=== PATIENT | female | born 1975 | race Caucasian/White ===

== ENCOUNTER 2020-10-20 17:17 | Outpatient (CLI) | payer BC | END 2020-10-20 17:18 | disposition home or self-care (01) | LOC: COV 17:17 | PROVIDERS: ATTEND Family Medicine | DX: Z20.828 Contact with and (suspected) exposure to other viral communicable diseases (principal) ==

== ENCOUNTER 2021-02-07 16:40 | Emergency (ER) | payer BC ==
[2021-02-07] MEDS ORDERED: ONDANSETRON 4 MG/2 ML VIAL IVP STA ×2 (17:09→18:56)
[2021-02-07] MEDS ORDERED: HYDROmorphone 1 MG/ML CARPUJECT IVP STA ×2 (17:09→19:04)
--- NOTE | 2021-02-07 17:13 | ED Physician Documentation ---
History of Present Illness - Stated complaint Stated Complaint: ABD PX - Chief complaint Chief Complaint: Abd Pain - Additonal information Additional information: 45-year-old female presents the emergency department for worsening right upper quadrant abdominal pain. She reports that she has had it intermittently for the last 2 months with some associated nausea and vomiting. She did discuss this with her primary care doctor who advised that she obtain an ultrasound of the abdomen. The ultrasound was completed this morning at [facility] and since then she has had worsening pain. Positive nausea no vomiting. She does report a history of kidney stones but feels that this is different. Review of Systems Constitutional: denies: Chills Eyes: reports: Reviewed and negative Ears: reports: Reviewed and negative Nose: reports: Reviewed and negative Throat: reports: Reviewed and negative Cardiac: denies: Chest pain / pressure, Palpitations, Pedal edema Respiratory: denies: Dyspnea, Cough GI: reports: Abdominal Pain, Nausea. denies: Vomiting, Constipation, Diarrhea : reports: Reviewed and negative Skin: reports: Reviewed and negative Musculoskeletal: reports: Reviewed and negative Neurologic: reports: Reviewed and negative PD PAST MEDICAL HISTORY - Present Medications Home Medications: Ambulatory Orders Medication Instructions Recorded Confirmed Ibuprofen [Motrin] 600 mg PO Q6H PRN #30 tab 02/07/21 Ondansetron Odt [Zofran] 4 mg TL Q6H PRN #10 tablet 02/07/21 Oxycodone HCl/Acetaminophen 1 - 2 each PO Q6H PRN #14 tablet 02/07/21 [Percocet 5-325 mg Tablet] - Allergies Allergies/Adverse Reactions: Allergies Allergy/AdvReac Type Severity Reaction Status Date / Time epinephrine Allergy Hives Verified 02/07/21 16:46 metoclopramide [From Reglan] Allergy Unknown Verified 02/07/21 16:46 shellfish derived Allergy Anaphylaxis Verified 02/07/21 16:46 PD ED PE EXPANDED - General General: Alert, No acute distress, In Pain, In distress - Cardiac Cardiac: Regular Rate, Radial strong equal, Pedal strong equal, Cap refill < 2 sec - Respiratory Respiratory: Clear to ausultation nancie. No: Distress, Labored - Abdomen Abdomen: Normal Bowel sounds, Tender to palpation, Rebound, Guarding, RUQ - Derm Derm: Normal color, Warm and dry. No: Rash - Extremities Extremities: Normal. No: Deformity, Tenderness - Neuro Neuro: Alert and Oriented X 3, CNII-XII intact - GCS Eye Opening: Spontaneous Motor: Obeys Commands Verbal: Oriented Total: 15 Results - Vitals Vitals: Vital Signs - 24 hr 02/07/21 02/07/21 16:46 18:50 Temperature 36.4 C L Heart Rate 71 60 Respiratory 20 18 Rate Blood Pressure 153/116 H 139/99 H O2 Saturation 97 100 Oxygen O2 Source Room air - Labs Labs: Laboratory Tests 02/07/21 02/07/21 02/07/21 17:15 17:34 17:34 WBC 7.6 RBC 5.14 Hgb 15.3 Hct 45.3 MCV 88.1 MCH 29.8 MCHC 33.8 RDW 12.9 Plt Count 222 MPV 10.7 Neut # (Auto) 4.2 Lymph # (Auto) 2.6 Hardy # (Auto) 0.5 Eos # (Auto) 0.2 Baso # (Auto) 0.1 Absolute Nucleated RBC 0.00 Nucleated RBC % 0.0 Sodium 139 Potassium 3.6 Chloride 104 Carbon Dioxide 25 Anion Gap 10.0 BUN 16 Creatinine 1.0 Estimated GFR (MDRD) 60 L Glucose 92 Calcium 9.7 Total Bilirubin 0.6 AST 40 ALT 48 Alkaline Phosphatase 74 Total Protein 8.2 Albumin 4.7 Globulin 3.5 Albumin/Globulin Ratio 1.3 Lipase 23 Urine Color YELLOW Urine Clarity CLEAR Urine pH 6.0 Ur Specific [place] <=1.005 Urine Protein NEGATIVE Urine Glucose (UA) NEGATIVE Urine Ketones NEGATIVE Urine Occult Blood NEGATIVE Urine Nitrite NEGATIVE Urine Bilirubin NEGATIVE Urine Urobilinogen 0.2 (NORMAL) Ur Leukocyte Esterase NEGATIVE Ur Microscopic Review NOT INDICATED Urine Culture Comments NOT INDICATED Urine HCG, Qual NEGATIVE - Rads (name of study) CT abd Radiology: Final report received (Mild hepatomegaly and prominent hepatic steatosis. Very mild right greater than left hydronephrosis without visible calcifications or perinephric inflammation. May represent recently passed calculus or vesicoureteral reflux) PD MEDICAL DECISION MAKING - ED course Complexity details: reviewed results, re-evaluated patient, d/w patient ED course: 45-year-old female presents the emergency department for evaluation of upper quadrant abdominal pain with associated nausea and vomiting. This has been an ongoing issue for at least 2 months but acutely worse this morning after she had an ultrasound completed at [facility]. Abdominal ultrasound completed this morning at [facility] results are reviewed:No findings of gallstones or sludge. Gallbladder wall is not thickened. No pericholecystic fluid seen. Negative Horvath's. Kidneys are normal in size and echotexture. Mild right pelviectasis seen. Impression is sonographically normal gallbladder. Biliary tree is not well seen. When patient presented she was in exquisite pain in the right upper quadrant and right flank. Given the ultrasound results at an outlying hospital today that were essentially normal for concerns of biliary colic we did proceed to do a CT of the abdomen without contrast given shellfish allergy. CT of the abdomen does show mild right greater than left hydronephrosis without any obvious stones or h ydroureter. There is no findings of infection in the urine. These findings do suggest that she is likely passing a stone. Screening labs show no significant abnormality. Urine shows no signs of infection. Patient was given Dilaudid and Zofran initially for pain control in the emergency department with moderate relief that was then followed up with Toradol and again dilaudid with marked improvement in symptoms. Patient will be discharged home. Advised to follow-up with Dr. Wiley urology in [place]. She will also be given a limited prescription for Percocet and Zofran for home use. Emergent return precautions were discussed. Departure - Departure Disposition: 01 Home, Self Care Clinical Impression: Right flank pain, Hydronephrosis of right kidney Condition: Stable Record reviewed to determine appropriate education?: Yes Instructions: ED Stone Renal W Colic Follow-Up: Yoav Wiley MD [Provider Admit Priv/Credential] - Adithya Frank MD [Primary Care Provider] - Prescriptions: Ibuprofen [Motrin] 600 mg PO Q6H PRN #30 tab PRN Reason: Pain Oxycodone HCl/Acetaminophen [Percocet 5-325 mg Tablet] 1 - 2 each PO Q6H PRN #14 tablet PRN Reason: pain Ondansetron Odt [Zofran] 4 mg TL Q6H PRN #10 tablet PRN Reason: Nausea / Vomiting Comments: Madonna I am glad that your pain is feeling better. You were seen today in the emergency department for right flank pain. As we discussed the ultrasound completed at [facility] did not show any findings of gallbladder concern. However the CT scan today that we did in the emergency department suggests mild right-sided kidney swelling. Your pain is most consistent with passing a kidney stone. Reassuringly all your labs are essentially normal and there is no infection in the urine. I have prescribed ibuprofen to be used with food 3 times a day for pain. I have also prescribed a limited amount of Zofran to help with nausea. For severe pain you may use the Percocet. Be cautious with this medication it is addictive will cause constipation and make you unsafe to drive. Please discuss this ED visit with your primary care provider. I have also made a referral for you to follow-up with Dr. Wiley in [place] who is a urologist. If at any point you are having worsening pain, any fevers uncontrolled vomiting please return to the ER for a second look.
[2021-02-07 17:26] LABS: BILIRUBIN,URINE NEGATIVE (NEGATIVE); GLUCOSE, URINE (UA) NEGATIVE (NEGATIVE); KETONES,URINE (UA) NEGATIVE (NEGATIVE); LEUKOCYTE ESTERASE, URINE NEGATIVE (NEGATIVE); NITRITE,URINE NEGATIVE (NEGATIVE); OCCULT BLOOD,URINE NEGATIVE (NEGATIVE); PROTEIN,URINE NEGATIVE (NEGATIVE); UROBILINOGEN,URINE 0.2 (NORMAL) E.U./dL (NORMAL)
[2021-02-07 17:28] LABS: CLARITY,URINE CLEAR (CLEAR); HCG UR QUAL NEGATIVE
[2021-02-07 17:39] LABS: BASOPHILS # (AUTO) 0.1 10^3/uL (0.0-0.1); BASOPHILS % (AUTO) 0.9 %; EOSINOPHILS # (AUTO) 0.2 10^3/uL (0.0-0.7); EOSINOPHILS % (AUTO) 2.6 %; HCT - HEMATOCRIT 45.3 % (37.0-47.0); HGB - HEMOGLOBIN 15.3 g/dL (12.0-16.0); LYMPHOCYTES # (AUTO) 2.6 10^3/uL (1.5-3.5); LYMPHOCYTES % (AUTO) 34.4 %; MEAN CORPUSCULAR HEMOGLOBIN 29.8 pg (27.0-31.0); MEAN CORPUSCULAR HGB CONC 33.8 g/dL (32.0-36.0); MEAN CORPUSCULAR VOLUME 88.1 fL (81.0-99.0); MEAN PLATELET VOLUME 10.7 fL (7.9-10.8); MONOCYTES # (AUTO) 0.5 10^3/uL (0.0-1.0); MONOCYTES % (AUTO) 6.7 %; NEUTROPHILS # (AUTO) 4.2 10^3/uL (1.5-6.6); NEUTROPHILS % (AUTO) 55.1 %; PLT - PLATELET COUNT 222 10^3/uL (130-450); RED BLOOD COUNT 5.14 10^6/uL (4.20-5.40); RED CELL DISTRIBUTION WIDTH 12.9 % (12.0-15.0); WHITE BLOOD COUNT 7.6 x10^3/uL (4.8-10.8)
[2021-02-07 17:52] LABS: ALBUMIN 4.7 g/dL (3.2-5.5); ALBUMIN/GLOBULIN RATIO 1.3 (1.0-2.2); BILIRUBIN,TOTAL 0.6 mg/dL (0.2-1.0); CALCIUM 9.7 mg/dL (8.5-10.3); POTASSIUM 3.6 mmol/L (3.5-5.0); TOTAL PROTEIN 8.2 g/dL (6.7-8.2)
--- NOTE | 2021-02-07 18:18 | CT Report ---
PROCEDURE: Abdomen/Pelvis WO INDICATIONS: Right flank/RUQ pain TECHNIQUE: Noncontrast 5 mm thick sections acquired from the diaphragms to the symphysis. 5 mm coronal and sagi ttal reformats were then performed. For radiation dose reduction, the following was used: automated exposure control, adjustment of mA and/or kV according to patient size. COMPARISON: None. FINDINGS: Image quality: Excellent. ABDOMEN: Lung bases: Lung bases are clear. Heart size is normal. Solid organs: Liver is mildly enlarged and moderately diffusely hypodense. There are 2 rounded areas of relative hyperdensity adjacent to the gallbladder fossa, one measuring 1.3 cm, and the other, ill- defined measuring about 1.5 cm. The spleen is at the upper limits of normal in length measuring 13.4 cm. Gallbladder is normal Pancreas is normal in contours. No adrenal nodules. Kidneys are normal in size. Very minor bilateral hydronephrosis, right greater than left. No nephrolithiasis or perineph divina inflammation. No hydroureter. Peritoneum and bowel: Unenhanced bowel loops demonstrate normal wall thickness and caliber. Diminut josias appendix with appendicolith at the origin. No periappendiceal inflammation. Increased quantity of solid stool in the proximal colon. No free fluid or air. Nodes and vessels: No retroperitoneal or mesenteric adenopathy by size criteria. Aorta and inferior vena cava are normal in caliber. Miscellaneous: No ventral hernias. PELVIS: Genitourinary: Bladder wall thickness is normal. The uterus is absent. Miscellaneous: No inguinal hernias or adenopathy. Bones: No suspicious bony lesions. No vertebral body compression fractures. IMPRESSION: 1. Mild hepatomegaly and prominent hepatic steatosis with probable focal fat sparing adjacent to the gallbladder. Confirmation with contrast-enhanced MRI of the liver is recommended. 2. Very mild right greater than left hydronephrosis without visible calcifications or perinephric inf lammation. This may represent recently passed calculus or vesicoureteral reflux. 3. Mild increased quantity of proximal colon stool. 4. Normal appendix. Reviewed by: Sierra Bae MD on 02/07/2021 5:17 PM [email or web address] Approved by: Sierra Bae MD on 02/07/2021 5:17 PM AKDT Station ID: [id number]
[2021-02-07] MEDS ORDERED: KETOROLAC 60 MG/2 ML VIAL IM STA (18:28)
[2021-02-07] MEDS ORDERED: oxyCODONE/ACET 5/325 Prepack 4 PO STA (19:29)
[2021-02-07] MEDS ORDERED: ONDANSETRON ODT 4 MG Prepack 2 TL PRN (19:29)
[2021-02-07 19:41] VITALS: BP 138/91
--- OUTSIDE RECORDS SUMMARY | 2021-02-08 03:25 | EXTERNAL MEDICAL SUMMARY RPT | Continuity of Care Document ---
:1975 Demographics Phone Unavailable Preferred Language Unknown Marital Status Unknown Rastafarian Affiliation Unknown Race Unknown Ethnic Group Unknown Author Organization [place] Address [address] [phone] Phone Social History date description facility [phone]
--- OUTSIDE RECORDS SUMMARY | 2021-02-08 03:25 | EXTERNAL MEDICAL SUMMARY RPT | Continuity of Care Document ---
:1975 Demographics Phone Unavailable Preferred Language Unknown Marital Status Unknown Sikhism Affiliation Unknown Race Unknown Ethnic Group Unknown Author Organization [place] Address [address] [phone] Phone Social History date description facility [phone]
== END 2021-02-07 19:50 | disposition home or self-care (01) ==
LOC: ED 16:40
DX: R10.11 Right upper quadrant pain (principal); R11.2 Nausea with vomiting, unspecified; N13.30 Unspecified hydronephrosis; Z87.442 Personal history of urinary calculi; K76.0 Fatty (change of) liver, not elsewhere classified; Z91.013 Allergy to seafood
CPT/HCPCS: 36415; 74176; 80053; 81003; 81025; 83690; 85025; 96372; 96374; 96375; 96376; 99284; J1170; 81001; 87086

== ENCOUNTER 2022-03-21 11:15 | Outpatient (CLI) | payer BC ==
--- NOTE | 2022-03-22 14:52 | Mammography Report ---
BILATERAL DIGITAL SCREENING MAMMOGRAM 3D/2D: 03/21/2022 CLINICAL: Routine screening. Comparison is made to exam dated: 07/18/2018 mammogram - [facility]. The tissue of todd th breasts is heterogeneously dense. This may lower the sensitivity of mammography. No significant masses, calcifications, or other findings are seen in either breast. There has been no significant interval change. IMPRESSION: NEGATIVE There is no mammographic evidence of malignancy. A 1 year screening mammogram is recommended. This exam was interpreted at Station ID: [id number]. NOTE: For mammograms, a report in lay terms will be sent to the patient. Approximately 15% of breast malignancies will not be visualized mammographically. In the management of a palpable breast mass, a negative mammogram must not discourage biopsy of a clinically suspicious lesion. Electronically Signed By: Devan Oreilly M.D. [facility] [place]03/21/2022 16:53:45 ACR BI-RADS Category 1: Negative 3341F PARENCHYMAL PATTERN: (D) - The breast(s) demonstrate(s) heterogeneously dense fibroglandular rachel donovan. BI-RADS CATEGORY: (1) - 1 RECOMMENDATION: (ANNUAL) - Recommend routine annual screening mammography. [id number] 1 year screening LATERALITY: (B)
== END 2022-03-21 11:16 | disposition home or self-care (01) ==
LOC: DI.N 11:15
PROVIDERS: ATTEND Family Medicine
DX: Z12.31 Encounter for screening mammogram for malignant neoplasm of breast (principal)

== ENCOUNTER 2022-06-05 11:54 | Day surgery (SDC) | payer BC ==
[2022-06-05] MEDS ORDERED: PROPOFOL 500 MG/50 ML 500 MG/50 ML VIAL ONE (12:23)
[2022-06-05] MEDS ORDERED: LIDOCAINE-MPF 2% 5 ML VIAL ONE (12:23)
[2022-06-05] MEDS ORDERED: LACTATED RINGERS 1,000 ML IV ONE ×2 (12:32→14:15)
--- NOTE | 2022-06-05 12:54 | ANESTHESIA ---
Pre-Anesthesia VS, & Labs - Diagnosis hx of colon polyps - Procedure colonoscopy Vital Signs: Temp Pulse Resp [place] 0[address]56 C H 88 16 146/82 H 96 06/05/22 12:10 06/05/22 12:10 06/05/22 12:10 06/05/22 12:10 06/05/22 12:10 Height: 5 ft 10 in Weight (kg): 118.8 kg Body Mass Index: 37.5 BMI Classification: Obese - NPO >8 hours - Is Patient ?: No (partial hysterectomy, vasectomy) Home Medications and Allergies Home Medications: Ambulatory Orders DULoxetine [Cymbalta] 30 mg PO DAILY 06/04/22 DULoxetine [Cymbalta] 30 mg PO DAILY 06/04/22 Allergies/Adverse Reactions: Allergies Allergy/AdvReac Type Severity Reaction Status Date / Time epinephrine Allergy Hives Verified 06/04/22 11:22 metoclopramide [From Reglan] Allergy Unknown Verified 06/04/22 11:22 shellfish derived Allergy Anaphylaxis Verified 06/04/22 11:22 Anes History & Medical History - Anesthetic History Anesthesia Complications: reports: No previous complications Family history of Anesthesia Complications: Denies Family history of Malignant Hyperthermia: Denies - Medical History Cardiovascular: reports: None Pulmonary: reports: None Gastrointestinal: reports: Colon polyps Urinary: reports: Kidney stones Neuro: reports: Headaches, Migraines, Seizure disorder (seizure with reglan) Musculoskeletal: reports: Osteoarthritis, Fibromyalgia Endocrine/Autoimmune: reports: None Blood Disorders: reports: None Skin: reports: None Smoking Status: Former smoker (quit 2003) History of Cancer?: No - Surgical History Gynecologic: reports: Other (partial hysterectomy; endometreosis) Orthopedic: reports: Other (total disc replacement C4-C5) Exam General: Alert, Oriented x3, Cooperative, No acute distress Dental: WNL Mouth Openin Fingerbreadth Neck Mobility: Normal Mallampati classification: III Thyromental Distance: less than 4 cm Respiratory: Lungs clear Cardiovascular: Regular rate, Normal S1, Normal S2, No murmurs Mental/Cognitive Status: Alert/Oriented X3, Normal for patient Cognitive Status: Within normal limits Plan Anesthesia Type: General, Total IV Consent for Procedure(s) Verified and Reviewed: Yes Code Status: Attempt Resuscitation ASA classification: 2-Mild systemic disease Is this case an emergency?: No
[2022-06-05] MEDS ORDERED: MIDAZOLAM 2 MG/2 ML VIAL ONE (13:21)
[2022-06-05 15:00] VITALS: BP 142/90
--- NOTE | 2022-06-05 17:40 | ANESTHESIA POST OP EVALUATION ---
Anesthesia Post Eval - Post Anesthesia Eval Vitals: Last Vital Signs Temp 36.2 C L 06/05/22 14:45 Pulse 68 06/05/22 14:45 Resp 16 06/05/22 14:45 BP 142/90 H 06/05/22 14:45 Pulse Ox 100 06/05/22 14:45 CV Function Including HR & BP: Stable Pain Control: Satisfactory Nausea & Vomiting: Negative Mental Status: Baseline Respiratory Status: Airway Patent Hydration Status: Satisfactory Anesthesia Complications: None
== END 2022-06-05 11:55 | disposition home or self-care (01) ==
LOC: SDS 11:54
PROVIDERS: ATTEND Surgery
DX: Z12.11 Encounter for screening for malignant neoplasm of colon (principal); Z86.010 Personal history of colon polyps; Z83.71 Family history of colonic polyps; Z80.0 Family history of malignant neoplasm of digestive organs; E66.9 Obesity, unspecified; G40.909 Epilepsy, unspecified, not intractable, without status epilepticus; Z68.38 Body mass index [BMI] 38.0-38.9, adult; Z87.891 Personal history of nicotine dependence
CPT/HCPCS: 45378; J7120

== ENCOUNTER 2024-07-22 11:13 | Outpatient (CLI) | payer BC ==
--- NOTE | 2024-07-22 15:31 | Mammography Report ---
BILATERAL DIGITAL SCREENING MAMMOGRAM 3D/2D: 07/22/2024 CLINICAL: Routine screening. Comparison is made to exams dated: 03/21/2022 mammogram - [facility] and 07/18/2018 mammogram - [facility]. There are scattered areas of fibroglandular density (category b / 25%-50% glandular tissue). No significant masses, calcifications, or other findings are seen in either breast. There has been no significant interval change. IMPRESSION: NEGATIVE There is no mammographic evidence of malignancy. A 1 year screening mammogram is recommended. Based on the Tyrer Cuzick model (a risk assessment model) the patient's lifetime risk is 8.5% and her 10 year risk is 2.0%. According to the ACR, ACS, and NCCN guidelines, an annual breast MRI exam ashley g with mammogram is recommended if the patient's lifetime risk is 20% or greater. This exam was interpreted at Station ID: [id number]. NOTE: For mammograms, a report in lay terms will be sent to the patient. Approximately 15% of breast malignancies will not be visualized mammographically. In the management of a palpable breast mass, a negative mammogram must not discourage biopsy of a clinically suspicious lesion. Electronically Signed By: Sierra nguyen/fabian:07/22/2024 14:07:57 ACR BI-RADS Category 1: Negative 3341F PARENCHYMAL PATTERN: (A) - The breast(s) demonstrate(s) scattered fibroglandular densities. BI-RADS CATEGORY: (1) - 1 RECOMMENDATION: (ANNUAL) - Recommend routine annual screening mammography. [id number] 1 year screening LATERALITY: (B)
== END 2024-07-22 11:14 | disposition home or self-care (01) ==
LOC: DI.N 11:13
PROVIDERS: ATTEND Family Medicine
DX: Z12.31 Encounter for screening mammogram for malignant neoplasm of breast (principal); R92.323 Mammographic fibroglandular density, bilateral breasts